=== PATIENT | female | born 1955 | race Hispanic/Latino ===

== ENCOUNTER 2017-04-04 17:25 | Emergency (ER) | payer BC, OTHER ==
[~2017-04-04 17:25] MED LIST: ASPI-555 PO; ATOR20TA65 PO; CALC600T12 PO; CHOL200074 PO; EZET10 PO; VITAMIN B 12 PO
[2017-04-04] MEDS ORDERED: TETANUS/DIPHTHERIA TOXOID [ADULT] 0.5 ML VIAL IM ONE (17:40)
== END 2017-04-04 18:30 | disposition home or self-care (01) ==
LOC: EDH 17:25
DX: S80.271A Other superficial bite of right knee, initial encounter (principal); E78.5 Hyperlipidemia, unspecified; Z88.5 Allergy status to narcotic agent; Z88.6 Allergy status to analgesic agent; W54.0XXA Bitten by dog, initial encounter; Y93.89 Activity, other specified; Y92.098 Other place in other non-institutional residence as the place of occurrence of the external cause; Y99.8 Other external cause status
CPT/HCPCS: 90471; 90714

== ENCOUNTER → 2023-03-01 | Outpatient (CLI) | payer BC ==
[~2023-03-01] MED LIST changes: -ASPI-555 PO; +ASPI-556 PO; +CALC-1125 PO; -CALC600T12 PO; -EZET10 PO; +EZET10TA81 PO; +IOHEXOL 350 MG/ML 100ML INFUS..BTL IV ONE
== END | disposition home or self-care (01) ==
LOC: RAH 10:40
PROVIDERS: ATTEND Student in an Organized Health Care Education/Training Program
DX: R00.2 Palpitations (principal)
CPT/HCPCS: 93306; Q9967

== ENCOUNTER → 2023-04-21 | Outpatient (CLI) | payer BC, MEDICARE ==
[~2023-04-21] MED LIST changes: -IOHEXOL 350 MG/ML 100ML INFUS..BTL IV ONE
[2023-04-21] MEDS: REGADENOSON 0.4 MG/5 ML PF SYG IVP ONE (14:31)
== END | disposition home or self-care (01) ==
LOC: SHCH 08:22
PROVIDERS: ATTEND Student in an Organized Health Care Education/Training Program
DX: I49.3 Ventricular premature depolarization (principal); R00.2 Palpitations; R06.00 Dyspnea, unspecified
CPT/HCPCS: 78452; 93017; J2785; A9500 ×2; 96374

== ENCOUNTER 2023-12-21 06:00 | Day surgery (SDC) | payer BC, MEDICARE ==
[2023-12-15 14:52] VITALS: BP 111/59; PULSE 56; RESP 18; TEMP 97.5
[2023-12-15 15:03] LABS: BASOPHILS # (AUTO) 0.02 K/uL (0.00-0.20); BASOPHILS % (AUTO) 0.3 % (0.0-5.0); EOSINOPHILS # (AUTO) 0.08 K/uL (0.00-0.70); EOSINOPHILS % (AUTO) 1.4 % (0.0-8.0); HEMATOCRIT 37.4 % (36-48); LYMPHOCYTES # (AUTO) 1.5 K/uL (1.0-4.8); LYMPHOCYTES % (AUTO) 26.5 % (21.0-51.0); MEAN CORPUSCULAR HGB CONC 34.2 g/dL (32.0-36.0); MEAN CORPUSCULAR VOLUME 90.6 fL (79-99); MONOCYTES # (AUTO) 0.4 K/uL (0.1-1.0); MONOCYTES % (AUTO) 6.6 % (3.0-13.0); NEUTROPHILS # (AUTO) 3.7 K/uL (1.8-7.7); NEUTROPHILS % (AUTO) 65.2 % (40.0-77.0); PLATELET COUNT (AUTO) 230 K/uL (130-400); RED BLOOD CELL COUNT(AUTO) 4.13 MIL/uL (4.00-5.50); RED CELL DISTRIBUTION WIDTH 13.6 % (11.0-15.5); WHITE BLOOD COUNT (AUTO) 5.7 K/uL (4.8-10.8)
[2023-12-15 15:18] LABS: CREATININE 0.9 mg/dL (0.5-1.0); POTASSIUM 3.9 mmol/L (3.5-5.1)
[2023-12-15 15:22] LABS: INR 1.08 (0.85-1.15); PROTHROMBIN TIME 11.6 SEC (9.6-11.6)
[~2023-12-21] VITALS: Ht 157.5 cm; Wt 55.6 kg
[~2023-12-21 06:00] MED LIST changes: -ASPI-556 PO; -ATOR20TA65 PO; +CELE200 PO; +HYDR-4060 PO; +LATA2.5D14 OD; +MAGN200T4 PO; +METO-391 PO; -VITAMIN B 12 PO
[2023-12-21 06:20] VITALS: BP 122/61; PULSE 63; RESP 18; TEMP 97.5
[2023-12-21] MEDS: 0.9%NACL 1000ML 1,000 ML IV ONE (06:58)
[2023-12-21] MEDS ORDERED: LIDOCAINE HCL 1% MDV 50ML VIAL ONE (07:32)
[2023-12-21] MEDS ORDERED: FENTanyl CITRate PF 50 MCG/1 ML 2ML VIAL ONE (07:32)
[2023-12-21] MEDS ORDERED: BUPIvacaine/PF 0.25% 30ML VIAL IJ ONE (07:33)
[2023-12-21] MEDS ORDERED: MIDAZOLAM HCL 1 MG/ML 2ML VIAL ONE ×2 (07:33→07:59)
[2023-12-21] MEDS ORDERED: GLUCAGON 1MG KIT 1 MG ML IM PRN (08:30)
[2023-12-21] MEDS ORDERED: DEXTROSE 50%-WATER 50 ML DISP.SYRIN IV PRN (08:30)
[2023-12-21 08:36] VITALS: BP 106/49; PULSE 59; RESP 15; TEMP 97
[2023-12-21 08:50] VITALS: BP 106/49; PULSE 52; RESP 15
[2023-12-21 09:05] VITALS: BP 97/47; PULSE 53; RESP 14
[2023-12-21 09:20] VITALS: BP 107/50; PULSE 52; RESP 16
== END 2023-12-21 09:35 | disposition home or self-care (01) ==
LOC: DAH 06:00
PROVIDERS: ATTEND Student in an Organized Health Care Education/Training Program
DX: Z45.09 Encounter for adjustment and management of other cardiac device (principal); R00.2 Palpitations; E78.5 Hyperlipidemia, unspecified; I49.3 Ventricular premature depolarization; Z98.51 Tubal ligation status; Z98.890 Other specified postprocedural states; Z82.49 Family history of ischemic heart disease and other diseases of the circulatory system; Z83.3 Family history of diabetes mellitus; Z88.5 Allergy status to narcotic agent; Z79.01 Long term (current) use of anticoagulants; Z79.82 Long term (current) use of aspirin; Z79.899 Other long term (current) drug therapy
CPT/HCPCS: 80048; 85025; 85610; 85730; 36415; 93005; 33286; J0665; A4649; J3010; J7030; J2250 ×2; J3490; 99156; 99157